=== PATIENT | male | born 1975 | race Caucasian/White ===

== ENCOUNTER → 2017-07-21 11:45 | Outpatient (CLI) | payer BC | END | disposition home or self-care (01) | LOC: D.MRI 11:45 | DX: G83.9 Paralytic syndrome, unspecified (principal); G11.4 Hereditary spastic paraplegia; R26.2 Difficulty in walking, not elsewhere classified ==

== ENCOUNTER → 2017-11-18 07:45 | Outpatient (CLI) | payer BC | END | disposition home or self-care (01) | LOC: D.MRI 07:45 | DX: M54.12 Radiculopathy, cervical region (principal) ==